=== PATIENT | male | born 2000 | race Caucasian/White ===

== ENCOUNTER 2019-05-05 03:50 | Emergency (ER) | payer SELFPAY ==
[~2019-05-05] VITALS: Ht 185.4 cm; Wt 70.3 kg
[2019-05-05 03:52] VITALS: BP 130/86
--- NOTE | 2019-05-05 03:52 | NUR ---
PT BIBA BLS TO ER BED 11
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
--- NOTE | 2019-05-05 04:07 | NUR ---
DR. SALCEDO EVALUATING PT
[2019-05-05] MEDS ORDERED: NACL 0.9% 1,000 ML IV ONE ×2 (04:10→04:35)
[2019-05-05] MEDS ORDERED: MORPHINE SULFATE 4 MG/ML SYR IVP ONE ×2 (04:10→04:30)
[2019-05-05] MEDS ORDERED: MORPHINE SULFATE 4 MG/ML SYR ONE (04:37)
--- NOTE | 2019-05-05 04:37 | NUR ---
PT O2 SATURATION NOTED AT 91% ON ROOM AIR. PT PLACED ON 3L O2 VIA NASAL CANNULA. PT O2 SATURATION INCREASED TO 98%.
[2019-05-05 04:56] LABS: BASOPHILS # (AUTO) 0.1 K/uL (0.00-0.22); BASOPHILS % (AUTO) 0.9 % (0.0-2.0); EOSINOPHILS # (AUTO) 0.2 K/uL (0-0.4); EOSINOPHILS % (AUTO) 2.2 % (0.0-4.0); HEMATOCRIT 41.3 % (36-52); LYMPHOCYTES # (AUTO) 1.1 K/uL (2.0-11.5); LYMPHOCYTES % (AUTO) 15.7 % (20.5-51.1); MEAN CORPUSCULAR HEMOGLOBIN 30 pg (27-31); MEAN CORPUSCULAR HGB CONC 34 g/dL (33-37); MONOCYTES # (AUTO) 0.6 K/uL (0.8-1.0); MONOCYTES % (AUTO) 7.9 % (1.7-9.3); NEUTROPHILS # (AUTO) 5.2 K/uL (1.8-7.7); NEUTROPHILS % (AUTO) 73.3 % (42.2-75.2); PLATELET COUNT (AUTO) 255 K/uL (140-450); RED BLOOD CELL COUNT(AUTO) 4.75 MIL/uL (4.20-6.10); RED CELL DISTRIBUTION WIDTH 12.6 % (11.6-13.7); WHITE BLOOD COUNT (AUTO) 7.1 K/uL (4.5-11.0)
--- NOTE | 2019-05-05 04:58 | NUR ---
PT TAKEN TO CT VIA W/C
[2019-05-05 05:00] LABS: CARBON DIOXIDE 28.7 mmol/L (21-32); CREATININE 0.8 mg/dL (0.7-1.3); POTASSIUM 3.7 mmol/L (3.5-5.1)
[2019-05-05 05:06] LABS: ALBUMIN 3.6 g/dL (3.4-5.0); TOTAL BILIRUBIN 0.6 mg/dL (0.0-1.0)
--- NOTE | 2019-05-05 05:12 | NUR ---
PT RETURNED VIA W/C
--- NOTE | 2019-05-05 05:30 | NUR ---
PT SEEN WITH EYES CLOSED. VISIBLE CHEST RISE AND FALL NOTED. AROUSABLE TO NAME AND LIGHT TOUCH. VSS AT THIS TIME. WILL CONTINUE TO MONITOR.
--- NOTE | 2019-05-05 06:12 | NUR ---
PT UP TO AMBULATE, STEADY GAIT OBSERVED.
[2019-05-05 06:26] VITALS: BP 111/52
--- NOTE | 2019-05-05 06:30 | NUR ---
PT REQUESTING TO SPEAK WITH DOCTOR ABOUT NARCOTIC RX. DR. SALCEDO AT BEDSIDE WITH PT.
--- NOTE | 2019-05-05 06:41 | NUR ---
Patient discharged with v/s stable. Written and verbal after care instructions given and explained. Patient verbalized understanding. Ambulatory with steady gait. All questions addressed prior to discharge. Advised to follow up with PMD.
== END 2019-05-05 06:41 | disposition home or self-care (01) ==
LOC: MED 03:50
DX: S00.81XA Abrasion of other part of head, initial encounter (principal); R07.9 Chest pain, unspecified; M25.511 Pain in right shoulder; M25.552 Pain in left hip; M25.532 Pain in left wrist; M79.631 Pain in right forearm; M25.521 Pain in right elbow; R20.0 Anesthesia of skin; R55 Syncope and collapse; V49.49XA Driver injured in collision with other motor vehicles in traffic accident, initial encounter; Y93.89 Activity, other specified; Y92.488 Other paved roadways as the place of occurrence of the external cause; Y99.8 Other external cause status
CPT/HCPCS: 36415; 70450; 80053; 81002; 83690; 85025; 90471; 90715; 96361; 96374; 99284; J2270

== ENCOUNTER 2019-05-05 07:29 | Emergency (ER) | payer SELFPAY ==
[~2019-05-05] VITALS: Ht 182.9 cm; Wt 71.2 kg
[2019-05-05 07:33] VITALS: BP 157/63
--- NOTE | 2019-05-05 07:46 | NUR ---
TO BED 11 WITH STEADY GAIT.
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
[2019-05-05] MEDS ORDERED: ACETAMINOPHEN 325 MG TAB PO ONE (08:00)
[2019-05-05 08:17] VITALS: BP 157/63
== END 2019-05-05 08:16 | disposition home or self-care (01) ==
LOC: MED 07:29
DX: S01.131A Puncture wound without foreign body of right eyelid and periocular area, initial encounter (principal); M54.9 Dorsalgia, unspecified; F17.200 Nicotine dependence, unspecified, uncomplicated; V49.49XA Driver injured in collision with other motor vehicles in traffic accident, initial encounter; W22.11XA Striking against or struck by driver side automobile airbag, initial encounter; Y93.89 Activity, other specified; Y92.488 Other paved roadways as the place of occurrence of the external cause; Y99.8 Other external cause status
CPT/HCPCS: 99282

== ENCOUNTER 2019-05-05 15:01 | Emergency (ER) | payer SELFPAY ==
[~2019-05-05] VITALS: Ht 185.4 cm; Wt 70.3 kg
[2019-05-05 15:13] VITALS: BP 128/68
--- NOTE | 2019-05-05 15:21 | NUR ---
PT TO LOBBY WITH STEADY GAIT.
--- NOTE | 2019-05-05 15:52 | NUR ---
PT TO ER BED 2
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
--- NOTE | 2019-05-05 16:09 | NUR ---
Patient being evaluated by DR SALMERON at bedside.
[2019-05-05 16:31] VITALS: BP 122/69
== END 2019-05-05 16:31 | disposition home or self-care (01) ==
LOC: MED 15:01
DX: S00.83XA Contusion of other part of head, initial encounter (principal); T14.8XXA Other injury of unspecified body region, initial encounter; R55 Syncope and collapse; M79.621 Pain in right upper arm; M79.622 Pain in left upper arm; V49.69XA Unspecified car occupant injured in collision with other motor vehicles in traffic accident, initial encounter; W22.10XA Striking against or struck by unspecified automobile airbag, initial encounter; Y93.89 Activity, other specified; Y92.488 Other paved roadways as the place of occurrence of the external cause; Y99.8 Other external cause status
CPT/HCPCS: 99283